=== PATIENT | female | born 1965 | race Caucasian/White ===

== ENCOUNTER 2020-02-13 14:07 | Outpatient (RCR) | payer MEDICAID, SELFPAY | END 2020-04-30 15:23 | disposition home or self-care (01) | LOC: HO.WCC 14:07 | PROVIDERS: PCP Internal Medicine; Visit Provider Surgery | DX: E11.621 Type 2 diabetes mellitus with foot ulcer (principal); L97.525 Non-pressure chronic ulcer of other part of left foot with muscle involvement without evidence of necrosis; L03.032 Cellulitis of left toe; Z79.4 Long term (current) use of insulin; Z89.422 Acquired absence of other left toe(s); Z89.421 Acquired absence of other right toe(s); Z79.2 Long term (current) use of antibiotics | CPT/HCPCS: 11042 ==

== ENCOUNTER 2020-08-24 08:11 | Outpatient (RCR) | payer MEDICAID, SELFPAY | END 2020-08-24 09:15 | disposition home or self-care (01) | LOC: HO.WCC 08:11 | PROVIDERS: Visit Provider Physician Assistant | DX: E11.628 Type 2 diabetes mellitus with other skin complications (principal); S90.921A Unspecified superficial injury of right foot, initial encounter; E11.40 Type 2 diabetes mellitus with diabetic neuropathy, unspecified; R60.9 Edema, unspecified; F12.90 Cannabis use, unspecified, uncomplicated; Z87.891 Personal history of nicotine dependence; Z89.412 Acquired absence of left great toe; Z89.421 Acquired absence of other right toe(s); Z86.718 Personal history of other venous thrombosis and embolism | CPT/HCPCS: 99212 ==

== ENCOUNTER 2020-09-16 14:22 | Outpatient (RCR) | payer MEDICAID, SELFPAY | END 2021-03-22 11:07 | disposition home or self-care (01) | LOC: HO.WCC 14:22 | PROVIDERS: PCP Internal Medicine; Visit Provider Surgery | DX: E11.621 Type 2 diabetes mellitus with foot ulcer (principal); L97.422 Non-pressure chronic ulcer of left heel and midfoot with fat layer exposed; E11.610 Type 2 diabetes mellitus with diabetic neuropathic arthropathy; E11.65 Type 2 diabetes mellitus with hyperglycemia; L08.9 Local infection of the skin and subcutaneous tissue, unspecified; Z79.2 Long term (current) use of antibiotics; Z79.899 Other long term (current) drug therapy; Z79.891 Long term (current) use of opiate analgesic | CPT/HCPCS: 11042; 11043; 87071; 87077; 87186; 87205; 97597; 97598; 99211; 99212; 99213; 99214 ==

== ENCOUNTER 2020-12-01 15:28 | Outpatient (REF) | payer MEDICAID, SELFPAY ==
[2020-12-01 19:23] LABS: Alanine Aminotransferase 7 U/L (0-31); Albumin Level 4.3 g/dL (3.5-5.0); Alkaline Phosphatase 135 U/L (39-117); Anion Gap 15 (12-20); Aspartate Amino Transferase 13 U/L (5-31); Bilirubin Total 0.5 mg/dL (0.0-1.0); Blood Urea Nitrogen 16 mg/dL (9-16); Calcium 10.4 mg/dL (8.4-10.2); Carbon Dioxide 26 mmol/L (22-29); Chloride 103 mmol/L (96-108); Estimated Glomerular Filt Rate 59; Glucose Random 267 mg/dL (60-115); Potassium 5.4 mmol/L (3.3-5.1); Sodium 139 mmol/L (135-145); Total Protein 7.7 g/dL (6.5-8.0)
[2020-12-01 19:43] LABS: Thyroid Stimulating Hormone 0.95 uIU/mL (0.32-4.0); Vitamin D 25-OH Total 23.7 ng/mL (>30)
[2020-12-01 19:49] LABS: Vitamin B12 372 pg/mL (200-900)
[2020-12-02 08:00] LABS: Estimated Average Glucose 163 mg/dL; Hemoglobin A1c % 7.3 %
== END 2020-12-01 15:29 | disposition home or self-care (01) ==
LOC: HO.MANLDS 15:28
PROVIDERS: PCP Internal Medicine; Visit Provider Internal Medicine
DX: E13.42 Other specified diabetes mellitus with diabetic polyneuropathy (principal)
CPT/HCPCS: 36415; 80053; 82306; 82607; 83036; 83735; 84443

== ENCOUNTER 2022-02-21 10:51 | Outpatient (REF) | payer MEDICAID, SELFPAY ==
[2022-02-21 14:21] LABS: Estimated Average Glucose 229 mg/dL; Hemoglobin A1c % 9.6 %
[2022-02-21 14:32] LABS: Creatinine Urine 74.99 mg/dL; Microalbum/Creatinine Ratio Ur 278.7 ug/mg cr
[2022-02-21 14:38] LABS: Alanine Aminotransferase 10 U/L (0-31); Albumin Level 3.9 g/dL (3.5-5.0); Alkaline Phosphatase 101 U/L (39-117); Anion Gap 13 (12-20); Aspartate Amino Transferase 15 U/L (5-31); Bilirubin Total 0.7 mg/dL (0.0-1.0); Blood Urea Nitrogen 14 mg/dL (9-16); Calcium 9.6 mg/dL (8.4-10.2); Carbon Dioxide 31 mmol/L (22-29); Chloride 102 mmol/L (96-108); Cholesterol 193 mg/dL; Estimated Glomerular Filt Rate > 60; Glucose Random 92 mg/dL (60-115); HDL Cholesterol 60 mg/dL; LDL Cholesterol Calculated 115 mg/dl; Potassium 4.7 mmol/L (3.3-5.1); Sodium 141 mmol/L (135-145); Total Protein 6.7 g/dL (6.5-8.0); Triglycerides 92 mg/dL; Vitamin B12 850 pg/mL (200-900); Vitamin D 25-OH Total 25.5 ng/mL (>30)
== END 2022-02-21 10:52 | disposition home or self-care (01) ==
LOC: HO.MANLDS 10:51
PROVIDERS: Visit Provider Internal Medicine
DX: E53.8 Deficiency of other specified B group vitamins (principal); E55.9 Vitamin D deficiency, unspecified; E13.42 Other specified diabetes mellitus with diabetic polyneuropathy
CPT/HCPCS: 36415; 80053; 80061; 82043; 82306; 82607; 83036

== ENCOUNTER 2022-08-01 11:29 | Outpatient (REF) | payer MEDICAID, SELFPAY ==
[2022-08-01 13:04] LABS: Estimated Average Glucose 151 mg/dL; Hemoglobin A1c % 6.9 %
[2022-08-01 14:03] LABS: Alanine Aminotransferase 8 U/L (0-31); Alkaline Phosphatase 99 U/L (39-117); Anion Gap 16 (12-20); Aspartate Amino Transferase 13 U/L (5-31); Bilirubin Total 0.5 mg/dL (0.0-1.0); Blood Urea Nitrogen 12 mg/dL (9-16); Calcium 9.9 mg/dL (8.4-10.2); Carbon Dioxide 26 mmol/L (22-29); Chloride 107 mmol/L (96-108); Estimated Glomerular Filt Rate > 60; Glucose Random 164 mg/dL (60-115); Potassium 5.3 mmol/L (3.3-5.1); Sodium 144 mmol/L (135-145); Total Protein 6.9 g/dL (6.5-8.0)
[2022-08-01 14:26] LABS: Vitamin B12 510 pg/mL (200-900); Vitamin D 25-OH Total 29.3 ng/mL (>30)
== END 2022-08-01 11:30 | disposition home or self-care (01) ==
LOC: HO.MANLDS 11:29
PROVIDERS: Visit Provider Internal Medicine
DX: E53.8 Deficiency of other specified B group vitamins (principal); E13.42 Other specified diabetes mellitus with diabetic polyneuropathy; E55.9 Vitamin D deficiency, unspecified
CPT/HCPCS: 36415; 80053; 82306; 82607; 83036

== ENCOUNTER 2022-10-21 14:31 | Outpatient (REF) | payer MEDICAID, SELFPAY ==
[2022-10-21 18:08] LABS: Estimated Average Glucose 117 mg/dL; Hemoglobin A1c % 5.7 %
== END 2022-10-21 14:32 | disposition home or self-care (01) ==
LOC: HO.MANLDS 14:31
PROVIDERS: Visit Provider Internal Medicine
DX: E13.42 Other specified diabetes mellitus with diabetic polyneuropathy (principal)
CPT/HCPCS: 36415; 83036

== ENCOUNTER 2023-09-05 14:39 | Outpatient (REF) | payer MEDICAID, SELFPAY ==
[2023-09-06 05:15] LABS: Estimated Average Glucose 117 mg/dL; Hemoglobin A1C 134.3546 umol/L; Hemoglobin A1c % 5.7 % (<6.0)
== END 2023-09-05 14:40 | disposition home or self-care (01) ==
LOC: HO.MANLDS 14:39
PROVIDERS: Visit Provider Internal Medicine
DX: E13.42 Other specified diabetes mellitus with diabetic polyneuropathy (principal)
CPT/HCPCS: 36415; 83036

== ENCOUNTER 2024-05-10 13:00 | Outpatient (REF) | payer MEDICAID, SELFPAY ==
--- OUTSIDE RECORDS SUMMARY | 2024-05-10 13:36 | XMS_ITS | Data Portability ---
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 BY MOUTH EVERY DAY 09/07 completed Not Available Not Available Not Available Vyvanse 50 mg capsule Take 1 capsule every day by oral route. 2024 active she has appt 5 Not Available Not Available Not Available FreeStyle Lite Strips USE FOUR TIMES DAILY TO TEST BLOOD SUGAR LEVELS 2023 active Not Available Not Available Not Avai lable FreeStyle Lite Meter active Not Available Not Available N ot Available Lantus Solostar U-100 Insulin 100 unit/mL (3 mL) subcutaneou s pen ADMINISTE R 50 UNITS UNDER THE SKIN EVERY DAY 2024 active Not Available Not Available Not Avai lable Lantus Solostar U-100 Insulin 50 units qhs 11/24 completed Not Available Not Available Not Available Vyvanse 40 mg capsule TAKE 1 CAPSULE BY MOUTH EVERY DAY DIRECTED 04/05 completed Not Available Not Available Not Available Stimulant Laxative Plus 8.6 mg-50 mg tablet TAKE 2 TABLETS BY MOUTH EVERY EVENING 12/01 completed Not Available Not Available Not Available Trulicity 1.5 mg/0.5 mL subcutaneou s pen injector ADMINISTE R 1.5 MG UNDER THE SKIN EVERY WEEK active Not Available Not Available No t Available Trulicity 0.75 mg/0.5 mL subcutaneou s pen injector ADMINISTE R 0.75 MG UNDER THE SKIN EVERY WEEK 2024 active Not Available Not Available Not Avai sarah Smith COVID-19 Ag Self Test kit TEST DIRECTED TODAY 04/05 completed Not Available Not Available Not Available Ozempic 2 mg/dose (8 mg/3 mL) subcutaneou s pen injector Inject 0.25 mg every week by subcutane ous route for 30 days. 2022 active Not Available Not Available Not Avai lable Ozempic 0.25 mg or 0.5 mg (2 mg/3 mL) subcutaneou s pen injector INJECT 0.25MG UNDER THE SKIN EVERY WEEK 05/30 completed Not Available Not Available Not Available Vitals Date Recorded Body height Body mass index (BMI) Body weight Heart rate Oxygen saturation Oxygen saturation in Arterial blood by Pulse oximetry Systolic blood pressure Diastolic blood pressure Provider Name and Address Organization Details Last Updated DateTime 3 180.34 cm 29.8 kg/m2 10951.7 7 g 79 /min 99 % 99 % 138 mm[Hg] 72 mm[Hg] Nicky Mg [facility] 3 13:40:48 Date Recorded Body height Heart rate Oxygen saturation Oxygen saturation in Arterial blood by Pulse oximetry Systolic blood pressure Diastolic blood pressure Provider Name and Address Organization Details Last Updated DateTime 4 180.34 cm 65 /min 99 % 99 % 158 mm[Hg] 72 mm[Hg] Jadon Benson, DO [address] [place], [address] 4 13:49:12 Date Recorded Body height Body mass index (BMI) Body weight Heart rate Respiratory rate Oxygen saturation Oxygen saturation in Arterial blood by Pulse oximetry Systolic blood pressure Diastolic blood pressure Provider Name and Address Organization Details Last Updated DateTime 4 182.88 cm 28.5 kg/m2 95084.4 g 76 /min 16 /min 99 % 99 % 142 mm[Hg] 82 mm[Hg] Sam Duncan [facility] 4 13:36:21 Date Recorded Body height Body mass index (BMI) Body weight Heart rate Oxygen saturation Oxygen saturation in Arterial blood by Pulse oximetry Systolic blood pressure Diastolic blood pressure Provider Name and Address Organization Details Last Updated DateTime 4 182.88 cm 28.5 kg/m2 50360.4 g 99 /min 95 % 95 % 140 mm[Hg] 80 mm[Hg] Nicky Mg [facility] 4 14:18:55 Date Recorded Body height Body mass index (BMI) Body weight Heart rate Oxygen saturation Oxygen saturation in Arterial blood by Pulse oximetry Systolic blood pressure Diastolic blood pressure Provider Name and Address Organization Details Last Updated DateTime 5 182.88 cm 25.1 kg/m2 66804.5 9 g 82 /min 97 % 97 % 128 mm[Hg] 70 mm[Hg] Nicky Mg [facility] 5 12:14:58 Social History Question Answer Notes LastModified by Organizat ion Details LastModified Time Tobacco Smoking Status Current Every Day Smoker Nicky field [facility] 08/03/2022 11:20:31 What Was The Date Of Your Most Recent Tobacco Screening? 09/06/2023 [email or web address] Information not available 09/06/2023 How Much Tobacco Do You Smoke? 0.25 PPD [email or web address] Information not available 08/03/2022 Do You Or Have You Ever Used Any Other Forms Of Tobacco Or Nicotine? No Information not available 01/26/2022 Sex: Unknown Functional Status None recorded. Mental Status None recorded. Family History Nothing Reported. Medical History No medical history recorded. Gynecological HistoryNo gynecological history recorded. Obstetrics History GPAL:G 0 P 0 0 0 0 Immunizations Vaccine Type Date Status Note Provider Nam e and Address Organization Details Recorded Time COVID-19, mRNA, LNP-S, PF, 30 mcg/0.3 mL dose 10/08/2020 completed Antonella field [facility] 11/04/2020 16:24:28 COVID-19, mRNA, LNP-S, PF, 30 mcg/0.3 mL dose 09/04/2020 completed Antonella field [facility] 09/11/2020 11:13:37 Past Encounters Encounter ID Performer Location Encounter Start Date Encounter Closed Date Diagnosis/Indication Diagnosis SNOMED-CT Code Diagnosis ICD10 Code Diagnosis Note [id number] July DIANA Sanders [facility] Internal Medicine [address],[place] [address] 12/19/2017 15:08:55 12/19/2017 16:02:35 Spinal stenosis of lumbar region 71545524 M48.061 on tramadol sees ortho Chronic pain syndrome 37 1468043 G89.4 on tramadol and cyclobenza claudia sees ortho Diabetic p eripheral neuropathy 157261286 E11.40 managed by endo every three months on insulin, glipizide and metformin Diabetes mellitus 053698 09 E11.65 managed by endo on insulin, glipizide and metformin Vitamin D deficiency 347 72113 E55.9 on weekly supplement Cobalamin deficiency 190 604173 E53.8 on monthly injection Essential hypertension 18239301 I10 not well controlled Generalize d anxiety disorder 47745030 F41.1 with panic attacks and social phobias will d/c cyclobenza claudia in favor of prn lorazepam also on cymbalta 60 mg qd, which we could increase to see if this helps as well - will add a 30 mg dose to the 60 mg dose Migraine 86465328 G43.90 9 on topamax for prophylaxi s Impacted cerumen 2054701 6 H61.21 resolved with irrigation Hearing loss 93191393 H9 1.91 resolved with irrigation [id number] July [facility] Medicine [address] [facility] [employer] [place] [address] 01/24/2018 14:45:42 01/24/2018 15:32:22 Diabetic foot ulcer 519723474 E13.621 she is well versed in wound care as she has had many wounds. she is using alginate pads with daily changes she is capable of making the wound changes at home we will do weekly wound checks here until she is able to be seen by [facility] on the . they will put her on a cancellati on list. I will follow up with her in the office this monday for a wound check and to check the patients status she has been advised to go to ER if she spikes a fever or the foot becomes painful even if this means she needs to call 911 for ambulance - she understand s Osteomyelitis 69520571 M 86.9 Diabetic p eripheral neuropathy 295754866 E11.40 managed by endo every three months on insulin, glipizide and metformin [id number] July [facility] Medicine [address] [facility], [place] [address] 01/26/2018 15:57:40 01/26/2018 16:33:38 Essential hypertension 82906766 I10 not well controlled Diabetic p eripheral neuropathy 453753569 E11.40 managed by endo every three months on insulin, glipizide and metformin Osteomyelitis 17043226 M 86.9 history of Diabetes mellitus 562509 09 E11.65 managed by endo on insulin, glipizide and metformin Diabetic foot ulcer 3710 94081 E13.621 she is well versed in wound care as she has had many wounds. she is using alginate with daily changes she is capable of making the wound changes at home we will do twice weekly- weekly wound checks here until [facility] . they have put her on a cancellati on list. I will follow up with her in the office in 5 days for a wound check and to check the patients status she has been advised to go to ER if she spikes a fever or the foot becomes painful even if this means she needs to call 911 for ambulance - she understand s she needs aquacel foam pads which she used in the past with wound care as well as kerlix bandages to wrap the foot. [id number] [facility] Internal Medicine [address] [place] [address], [employer] [place] [address] 01/31/2018 14:11:21 01/31/2018 14:32:32 Essential hypertension 54832577 I10 very well controlled toady Diabetic p eripheral neuropathy 324905293 E11.40 managed by endo every three months on insulin, glipizide and metformin Osteomyelitis 52116264 M 86.9 history of with wounds in the past Diabetes mellitus 211454 09 E11.65 managed by endo on insulin, glipizide and metformin Diabetic foot ulcer 3710 24185 E13.621 aquacel foam pads and kerlix bandages have been ordered. the wound is healing well we will continue daily changes, but the foam pads can only be used every other day due to insurance coverage. she maintains only a minimal amount of pain, so she tries to remain non weight bearing. she reports there is still some blood drainage we will continue to check wound once weekly, we'll get a CBC today. if any changes come back sooner than one week she has been advised to go to ER if she spikes a fever or the foot becomes painful even if this means she needs to call 911 for ambulance - she understand s [id number] Saranya [facility] Medicine [address] [place] [address],[place] [address] 02/14/2018 15:48:23 02/14/2018 16:33:34 Vitamin B12 deficiency (non anemic) 80253759 E53.8 Anxiety 92357509 F41.9 stable with lorazepam f/u three months Spinal dm nosis of lumbar region 36676486 M48.061 on tramadol sees ortho Diabetic foot ulcer 3710 45733 E13.621 healing nicely, nearly resolved. continue wound care, f/u if needed continue diabetes management with dr. lombardi, who she sees every three months [id number] [facility] Medicine [address] [facility] [address] 05/18/2018 14:31:47 05/18/2018 15:13:58 Vitamin B12 deficiency (non anemic) 07171227 E53.8 Anxiety 42438233 F41.9 stable with lorazepam f/u three months Essential hypertension 69896141 I10 very well controlled toady Vitamin D deficiency 347 88865 E55.9 on weekly supplement Chronic pain syndrome 37 7078667 G89.4 on tramadol and cyclobenza claudia sees ortho Diabetic p eripheral neuropathy 764994580 E11.40 managed by endo every three months on insulin, glipizide and metformin Diabetes mellitus 965637 09 E11.65 no longer seeing endo, no changes were made still on basal insulin, metformin and glipizide Chronic ob structive pulmonary disease 64697818 J44.9 [id number] [facility] Internal Medicine [address] [facility] [place] [facility] [address] 12/17/2018 09:37:06 12/17/2018 11:17:10 Pre-surgery evaluation 325974001 Z01.818 cleared pending labs ekg reviewed- low risk Essential hypertension 33577908 I10 well controlled Chronic ob structive pulmonary disease 39213665 J44.9 generally well controlled Spinal dm nosis of lumbar region 97861989 M48.061 on tramadol sees ortho Lumbar spondylosis 69418 0009 M47.26 Diabetes mellitus 854847 09 E11.65 no longer seeing endo, no changes were made still on basal insulin, metformin and glipizide Vitamin B1 2 deficiency (non anemic) 80018419 E53.8 [id number] [facility] Internal Medicine [address] [facility],[place] [address] 01/16/2019 13:33:46 01/16/2019 14:49:16 Acute nontraumatic kidney injury 4410781059 53685 N17.9 Hyperkalemia 46914475 E8 7.5 Essential hypertension 51488727 I10 poorly controlled with amlodipine , will need kidneys to improve and may be able to return to lisinopril in future Type 2 saundra betes mellitus 13959370 E11.9 currently on just lantus glipizide/ metformin held due to ARIES Sepsis cau sed by Staphylococcus aureus 019456011 A41.01 bacteremia 2/2 mssa leg is still painful can't bend and swollen [id number] [facility] Internal Medicine [address] [facility],[place], [place] [address] 01/28/2019 15:24:32 01/28/2019 16:26:17 Acute nontraumatic kidney injury 2689113809 31768 N17.9 gfr/bun/cr eat all dramatical ly improved gfr of 47 most recently crCL using modified cockcroft- gault = 79 - will dose adjust her abx Hyperkalemia 49650504 E8 7.5 stable Essential hypertension 66914148 I10 poorly controlled with amlodipine , will need kidneys to improve and may be able to return to lisinopril in future Type 2 saundra betes mellitus 84463925 E11.9 currently on just lantus glipizide/ metformin held due to ARIES Sepsis cau sed by Staphylococcus aureus 999120975 A41.01 bacteremia 2/2 mssa leg is still painful can't bend and swollen white count elevated from discharge white count of 12.8 needs abx dose adjustemen t to 2 g every 8 hours Low back pain 107325239 M54.5 Anxiety 86471309 F41.9 stable with lorazepam f/u three months Vitamin B1 2 deficiency (non anemic) 60018695 E53.8 Vitamin D deficiency 347 21834 E55.9 on weekly supplement [id number] Jadon Benson [facility] Internal Medicine [address] [facility],[place] [address] 08/21/2019 14:05:54 08/21/2019 14:48:13 Essential hypertension 19432141 I10 [facility] Diabetes mellitus 072045 09 E13.42 following med instructio ns doing well not skipping doses diet is fair will need lab soon Attention deficit hyperactivity disorder 327266597 F90.9 pt understand s the potential issue with concomitta nt use of tramadol as we as with sertraline states has been on these by her psychiatri st for a long period of time without issue Chronic ac quired lymphedema 71456081 I89.0 pt consult spironolac tone trial watch lab [id number] Jadon Benson DO [facility] Internal Medicine [address] [facility],[place] [address] 11/25/2019 11:05:20 11/25/2019 13:32:56 Diabetes mellitus 13188818 E13.42 following med instructio ns doing well not skipping doses diet is fair will need lab soon Essential hypertension 03763504 I10 [facility] Chronic ob structive pulmonary disease 58645901 J44.9 no changes Attention deficit hyperactivity disorder 607084472 F90.9 pt understand s the potential issue with concomitta nt use of tramadol as we as with sertraline states has been on these by her psychiatri for a long period of time without issue Depressive disorder 3548 9007 F32.9 as below Anxiety 35350811 F41.9 Chronic ac quired lymphedema 59457167 I89.0 pt consult spironolac tone trial watch lab Allergic rhinitis 845659 04 J30.9 [id number] NATHANAEL CHIRINOS [facility] Internal Medicine [address] [facility],[place] [address] 03/31/2020 11:09:15 03/31/2020 15:48:29 Chronic low back pain 760982609 M54.5 worsening chronic back pain, will set up with pain management as per discussion as we do not provide pain management with chronic opioids in this office Attention deficit hyperactivity disorder, predominantly inattentive type 68177918 F90.0 needs refill, has had this medication for years, is aware to be careful with use of both tramadol, lorazepam and vyvanse together Osteomyelitis 43109172 M 86.9 the patient is recovering for recurrent osteomyeli tis due to uncontroll ed diabetes set up with wound care to follow recovery Amputated toe 577362598 Z89.429 the left fifth toe, she now only has her big toe and second toe remaining of that foot stitches intact, no sign of infection wound care will report to use if any issues [id number] Jadon Benson [facility] Internal [address] [address] 09/14/2020 11:27:16 09/14/2020 15:24:23 Cellulitis of right foot 2518992603 9343661 L03.115 [id number] Jadon Benson [facility] Internal [facility] [address] [facility],[place] [address] 12/01/2020 14:50:14 12/01/2020 15:28:28 Diabetes mellitus 29565901 E13.42 doing great and with her wgot loss of 60 she is no longer on metforminw ill need lab soon Osteomyelitis 84980940 M 86.9 resolved from her prior infection this ulcer did not reach the bone Chronic ob structive pulmonary disease 53010874 J44.9 no changes Amputated toe 649228915 Z89.429 had healed no issue Ulcer of l eft foot due to type 2 diabetes mellitus 1020682491 3886590 E11.621 she is to cont her follow up with her eye specialist and we will cont to follow alongalmos t totally healed now [id number] Jadon Benson [facility] Internal Medicine [address] [place] [address],[place] [address] 12/30/2020 08:26:01 12/30/2020 14:04:46 Anxiety 07925405 F41.9 Attention deficit hyperactivity disorder, predominantly inattentive type 59461335 F90.0 Vitamin D deficiency 347 80808 E55.9 Cobalamin deficiency 190 990866 E53.8 Chronic pain syndrome 37 2153748 G89.4 for dm foot ulcer / osteomyeli t [id number] Jadon Benson [address] [address] 06/16/2021 11:15:38 06/16/2021 16:27:50 Diabetes mellitus 60549758 E13.42 doing great and with her wgot loss of 60 she is no longer on metforminw ill need lab soon Essential hypertension 76587862 I10 will need to follow bc of the [facility] Chronic ob structive pulmonary disease 72140035 J44.9 no changes Type 2 saundra betes mellitus 17551431 E11.9 we will get a1c etc Osteomyelitis 61677297 M 86.9 resolved from her prior infection this ulcer did not reach the bone Amputated toe 473992672 Z89.429 had healed no issue Ulcer of l eft foot due to type 2 diabetes mellitus 7436840070 5655111 E11.621 L97.529 she is to cont her follow up with her eye specialist and we will cont to follow alongalmos t totally healed now Screening mammography of bilateral breasts 9346944453 07233 Z12.31 Spinal dm nosis of lumbar region 57135197 M48.061 [id number] [facility] [address] [facility],[place] [address] 01/26/2022 14:43:53 01/26/2022 15:17:49 Chronic obstructive pulmonary disease 50787852 J44.9 no changes Cobalamin deficiency 190 401900 E53.8 chk Vitamin D deficiency 347 80617 E55.9 Essential hypertension 17265485 I10 will need to follow bc of the [facility] Diabetes mellitus 49641404 doing great and with her wgot loss of 60 she is no longer on metforminw ill need lab soon Screening for malignant neoplasm of colon 246899893 Z12.11 not ready Screening mammography 24 939275 Z12.31 not ready Active or passive immunization 121145530 Z23 patient advised she is due for flu shot, tdap & pneu 23 Charcot ar thropathy of joint of ankle 206370159 M14.679 will refer to ortho Attention deficit hyperactivity disorder, predominantly inattentive type 55886227 F90.0 Gastroesop hageal reflux disease 871592757 K21.9 [id number] Jadon Benson [facility] Internal Medicine [address] [facility],[place] [address] 05/04/2022 08:46:10 05/06/2022 10:39:55 Diabetic peripheral neuropathy 581236815 E11.40 no changes now back on taking insulin dailywill be better if we knew a1c is conming down so we will chk a1c in 1 month and see pt Essential hypertension 36817344 I10 will need to follow bc of the dayyvyvrose Diabetes mellitus 411070 E13.42 her a1c last time was bad at 9.6 now back on taking insulin dailywill be better if we knew a1c is conming down so we will chk a1c in 1 month and see pt Pain of le ft knee joint 6569049548 50882 M25.562 appears to have a significan t injury of the left knee and had an apparent very bad twist now with pain that is over 3 months duration and getting worseshe will need an mri Charcot ar thropathy of joint of ankle 073818994 M14.679 will need to send another referral to ortho as they did not contact pt Osteomyelitis 97319424 M 86.9 resolved from her prior infection this ulcer did not reach the bone Chronic ob structive pulmonary disease 21585906 J44.9 no changes [id number] Jadon Benson [facility] Internal Medicine [address] [facility],[place] [address] 06/03/2022 12:11:41 06/06/2022 10:39:24 Pain of left knee joint 1621470001 32624 M25.562 appears to have a significan t injury of the left knee and had an apparent very bad twist now with pain that is over 3 months duration and getting worseshe will need an mri Chronic ob structive pulmonary disease 34452287 J44.9 no changes Essential hypertension 87736386 I10 will need to follow bc of the chitra Diabetes mellitus 031991 E13.42 her a1c last time was bad at 9.6 now back on taking insulin dailywill be better if we knew a1c is conming down so we will chk a1c in 1 month and see pt Osteoarthr itis of left knee joint 3763531985 45382 M17.12 [id number] Jadon Benson [facility] Internal Medicine [address] [facility] [address],[place] [address] 08/03/2022 11:15:28 08/03/2022 13:49:38 Attention deficit hyperactivity disorder, predominantly inattentive type 58732331 F90.0 Cobalamin deficiency 190 068839 E53.8 chk Diabetes mellitus 528164 09 E13.42 her a1c last time was bad at 6.9 and seems to be doing fair but still struggling with highs and lows [id number] Jadon Benson [facility] Internal Medicine [address] [facility],[place] [address] 10/21/2022 13:27:21 10/21/2022 15:13:27 Chronic obstructive pulmonary disease 44186014 J44.9 no changes Essential hypertension 99875704 I10 will need to [facility] Diabetes mellitus 070979 09 E13.42 her a1c last time was at 6.9 and seems to be doing fair but still struggling with highs and dlqab4e [id number] Jadon Benson [facility] Internal Medicine [address] [facility],[place] [address] 05/30/2023 13:46:17 05/30/2023 14:59:36 Diabetes mellitus 01422755 E13.42 her a1c last time was at 6.9 and seems to be doing fair but still struggling with highs and sodhj6r Essential hypertension 81208000 I10 will need to follow bc of the [facility] Chronic ob structive pulmonary disease 03890280 J44.9 no changes Anxiety 19496305 F41.9 noted Spinal dm nosis of lumbar region 84328736 M48.061 Bilateral carpal tunnel syndrome [id number] 6540814 G56.03 Type 2 saundra betes mellitus without complication 215306734 E11.9 [id number] Jadon Benson [facility] Internal Medicine [address] [facility],[place] [address] 09/06/2023 13:29:29 09/06/2023 14:03:55 Attention deficit hyperactivity disorder, predominantly inattentive type 89337671 F90.0 stable Vitamin D deficiency 347 57258 E55.9 will chk next Essential hypertension 87297246 I10 will need to follow bc of the [facility] Diabetes mellitus 097437 09 E13.42 her a1cis down 5.7 last time was at 6.9 and seems to be doing fair but still struggling with highs and injkc9d Depression screening 171 868632 Z13.31 doing better Rupture of ulnar collateral ligament of thumb 272615687 S53.31XA obvious deformity to right thumb with poor ROM Nicotine dependence 5629 4008 F17.200 [id number] Jadon Benson [facility] Internal Medicine [address] [facility],[place] [address] 12/12/2023 14:13:52 12/12/2023 14:38:36 Ulcer of foot 06557507 L97.412 must be seen by ortho Riki francois thropathy of joint of ankle 192726512 M14.679 must be seen by ortho [id number] Jadon Benson DO [facility] Internal Medicine [address] [facility],[place] [address] 05/10/2024 12:01:08 05/10/2024 12:57:30 Chronic obstructive pulmonary disease 98603525 J44.9 no changes Depression screening 171 287029 Z13.31 doing better Ulcer of foot 62717118 L 97.412 follow with wound carebut needs a foot surgeon to eval Health Concerns Section Related Observation LastModified by Organization Detai ls LastModified Time None Recorded Concern Status LastModified by Organization Details LastModified Time None Recorded Advance Directives Directive None Recorded Payers Encounter Date Sequence Insurance Name Policy Number Policy Jain Covered Member ID Jain Member ID Guarantor Name 10/21/2022 1 [place] Luba L Koffi [id number] Luba L Koffi 05/30/2023 1 [place] Luba L Koffi [id number] Luba L Koffi 09/06/2023 1 [place] Luba L Koffi [id number] Luba L Koffi 12/12/2023 1 [place] Luba L Koffi [id number] Luba L Koffi 05/10/2024 1 [place] Luba L Koffi [id number] Luba L Koffi Notes Date Note Type Note Provider Name a nd Address Organization Details Recorded Time 3 text/html here for rechk has had a bad [facility] herhas been seen by and doing hyaluronic acid possiblystates right now the plan is she is waiting for the epidural next weekbeing done by next week \has a referral out fo r ctsand a knee surgeon referral either in [place] or [place] (?[facility]) Jadon Benson, DO [address] [place], [address], [facility] Medicine 10/21/2022 14:04:41 4 text/html here for rechk and is doing ok overalllstressed at home with her daughter Jadon ShilpaKofi Benson DO [address] [place], [address], [facility] 05/30/2023 14:13:01 4 text/html here for rechk and is having a great deal of discomfort to her left thumbalso her a1c is 5.7 on a carnivore diet and is doing greather left yanira b now locks and is weakereval has some noted thenar muscle loss has a localized tremor to the thumb as well Jadon Benson, DO [address] [place], [address], [facility] 09/06/2023 13:57:48 4 text/html has noted onset of a callous on bottom of her right chracot foot at center of her soledue to arch drop this area now has a hole in it Jadon Benson DO [address] [place], [address], [facility] 12/12/2023 14:36:05 5 text/html here for wound eval relates has been manging at homehas two openings on bottom of footthis began in november and is a direct cause by her CHarcot dsrelates is struggling with this and doing her own dressing changeshas been to wound clinic twice and is awaiting further appt in 2 weeks Jadon Benson, DO [address] [facility], [place], [address], [facility] Medicine 05/10/2024 12:56:25 OBGyn Episode No OBEpisode recorded.
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
== END 2024-05-10 13:01 | disposition home or self-care (01) ==
LOC: HO.MANLDS 13:00
PROVIDERS: Visit Provider Internal Medicine
DX: L97.412 Non-pressure chronic ulcer of right heel and midfoot with fat layer exposed (principal)
CPT/HCPCS: 87070; 87077; 87147; 87186; 87205

== ENCOUNTER 2024-11-19 15:15 | Outpatient (RCR) | payer MEDICAID, SELFPAY | END 2024-11-19 16:58 | disposition home or self-care (01) | LOC: HO.WCC 15:15 | PROVIDERS: PCP Internal Medicine; Visit Provider Surgery Surgical Oncology | DX: E11.621 Type 2 diabetes mellitus with foot ulcer (principal); L97.512 Non-pressure chronic ulcer of other part of right foot with fat layer exposed; E11.40 Type 2 diabetes mellitus with diabetic neuropathy, unspecified; E11.610 Type 2 diabetes mellitus with diabetic neuropathic arthropathy; Z89.412 Acquired absence of left great toe; Z79.4 Long term (current) use of insulin; Z79.899 Other long term (current) drug therapy | CPT/HCPCS: 11042; 11043; 97597; 99212 ==